=== PATIENT | female | born 1940 | race Caucasian/White ===

== ENCOUNTER → 2018-05-29 | Outpatient (CLI) | payer OTHER ==
[~2018-05-29] MED LIST: ACETAMINOPHEN-1 EAC1 PO; ALEVE220 M1 PO; ALLEGRA ALLERG180 MG PO; ALLEGRA180 MG PO; ASPIR 8181 M1 PO; ASPIRIN325 PO; DICLOFENAC SODI75 MG PO; ESTER-C 1,0001 EACH PO; ESTROVEN 155 M155 MG PO; FLAGYL500 MG PO; HYDROCHLOROTH12.5 MG PO; HYDROCODONE-AP1 EAC6 PO; K-DUR 20 MEQ T20 MEQ PO; KLOR-CON 1010 MEQ PO; MAGOX 400400 MG PO; MOBIC7.5 MG PO; OXAYDO5 MG PO; OXYCODONE HCL 55 MG PO; PREMARIN1.25 MG PO; PRILOSEC 20 MG20 MG PO; PROBIOTIC1 EAC1 PO; PROVENTIL HFA6.7 G1 INH; VICODIN PO; VITAMIN B-12500 MCG PO; VITAMINS A-D-E1 EACH PO; XARELTO10 M1 PO; ZANTAC 150MG T150 MG PO; ZESTORETIC 10-1 EACH PO; ZOFRAN4 MG PO
== END ==
LOC: M.RAD 10:01
DX: Z12.31 Encounter for screening mammogram for malignant neoplasm of breast (principal); I10 Essential (primary) hypertension

== ENCOUNTER → 2019-12-31 | Outpatient (CLI) | payer OTHER ==
[~2019-12-31] MED LIST changes: +AVASTIN25 MG/1 ML RT. EYE; +PLAVIX 75 MG TA75 MG PO
[2019-12-31 11:51] VITALS: BP 163/59
== END | disposition home or self-care (01) ==
LOC: M.INT 10:47
DX: I70.1 Atherosclerosis of renal artery (principal); I10 Essential (primary) hypertension; Z79.899 Other long term (current) drug therapy; Z88.8 Allergy status to other drugs, medicaments and biological substances; Z90.710 Acquired absence of both cervix and uterus; Z79.82 Long term (current) use of aspirin

== ENCOUNTER → 2020-01-03 | Outpatient (CLI) | payer OTHER ==
[~2020-01-03] MED LIST changes: -PLAVIX 75 MG TA75 MG PO
[2020-01-03 11:26] LABS: CREATININE 1.1 mg/dL (0.6-1.3)
== END ==
LOC: M.LAB 10:30 → M.CT 11:30
PROVIDERS: Radiology Diagnostic Radiology
DX: I70.1 Atherosclerosis of renal artery (principal); I15.0 Renovascular hypertension; Q27.1 Congenital renal artery stenosis; M41.86 Other forms of scoliosis, lumbar region; M48.061 Spinal stenosis, lumbar region without neurogenic claudication; Z90.49 Acquired absence of other specified parts of digestive tract; Z90.710 Acquired absence of both cervix and uterus

== ENCOUNTER → 2020-01-10 | Outpatient (CLI) | payer OTHER ==
[~2020-01-10] VITALS: Ht 167.6 cm; Wt 74.8 kg
[~2020-01-10] MED LIST changes: +PLAVIX 75 MG TA75 MG PO
[2020-01-10 10:53] VITALS: BP 167/67
[2020-01-10 11:36] LABS: HEMATOCRIT 32.6 % (37.0-47.0); HEMOGLOBIN 11.5 gm/dL (12.0-15.0); MCH 33.2 pg (26.0-34.0); MCHC 35.3 g/dL (28.0-37.0); MCV 94.1 fL (80.0-100.0); MPV 8.2 fl. (7.2-11.1); RBC 3.46 mil/uL (4.20-5.00); RDW-CV 12.9 % (10.5-14.5); WBC 5.4 thou/uL (4.0-11.0)
[2020-01-10 11:48] LABS: CALCIUM 8.9 mg/dL (8.5-10.1); CREATININE 1.2 mg/dL (0.6-1.3); POTASSIUM 4.3 mmol/L (3.5-5.1)
[2020-01-10 13:15] VITALS: BP 162/60
[2020-01-10 13:30] VITALS: BP 155/65
[2020-01-10 13:45] VITALS: BP 146/63
[2020-01-10 14:31] VITALS: BP 139/61
--- NOTE | 2020-01-10 16:54 | EKG ---
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
== END | disposition home or self-care (01) ==
LOC: M.INT 09:37
PROVIDERS: Radiology Diagnostic Radiology
DX: I15.0 Renovascular hypertension (principal); I70.1 Atherosclerosis of renal artery; Z98.890 Other specified postprocedural states; Z90.49 Acquired absence of other specified parts of digestive tract; Z98.51 Tubal ligation status; Z98.41 Cataract extraction status, right eye; Z98.42 Cataract extraction status, left eye; Z79.899 Other long term (current) drug therapy; Z88.8 Allergy status to other drugs, medicaments and biological substances; Z79.82 Long term (current) use of aspirin

== ENCOUNTER → 2020-12-21 | Outpatient (CLI) | payer OTHER | LOC: M.RAD 13:00 | PROVIDERS: ATTEND Family Medicine | DX: E55.9 Vitamin D deficiency, unspecified (principal); Z87.81 Personal history of (healed) traumatic fracture ==